=== PATIENT | male | born 1975 | race Caucasian/White ===

== ENCOUNTER 2024-11-28 04:14 | Emergency (ER) | payer OTHER, SELFPAY ==
[2024-11-28 04:16] VITALS: BP 156/86; PULSE 70; RESP 18; TEMP 36.9; O2SAT 98; BMI 34.7
[2024-11-28] MEDS: Lidocaine 2% (20 ml mdv) 20 ML Vial INFILT (04:56)
--- NOTE | 2024-11-28 05:20 | RAD_ITS ---
PROCEDURE: HAND MIN 3 VIEWS 11/28/2024 REASON FOR EXAM: PAIN TECHNIQUE: HAND MIN 3 VIEWS COMPARISON: No FINDINGS: Old 4th metacarpal mid shaft fracture. Old 3rd metacarpal base fracture. Old 5th metacarpal mid shaft fracture. No acute fracture or dislocation. No soft tissue injury. RAD/Hand Min 3 Views IMPRESSION: No acute hand injury. Reading Location: [facility]
--- OUTSIDE RECORDS SUMMARY | 2024-11-28 05:26 | XMS RPT_ITS | CCD ---
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 Name Role Phone Turner Salvador Attending Unavailable Unavailable Primary Care Provider ROMERO Lyles Attending Unavailable Medications Completed/Discontinued Medications Medication Drug Class(es) Dates Sig (Normalized) Sig (Original) 1 ml ketorolac tromethamine 30 mg/ml cartridge (2 sources) Nonsteroidal Anti-inflammatory Drug, Cyclooxygenase Inhibitor Start: 05-30-2024 End: 05-30-2024 inject 30 mg by intramuscular injection once 30 mg, IntraMUSCular, Once, On Tue05/30/24 at 2014, For 1 dose Problems Problem Classification Problem Date Documented Da te Episodic/Chronic Viral infection (4 sources) Viral disease; Translations: [Viral infection, unspecified] Onset: 05-30-2024 05-30-2024 Episodic Results Test Name Value Interpretation Reference Range Facil ity ED Provider Noteon ED Provider Note Emergency Department Encounter [facility] ED Patient: Acosta Granger : 1975 Date of Evaluation: 05/30/2024 ED Provider: Romero Doyle DO Chief Complaint Chief Complaint Patient presents with Fever Pt has been taking nyquil and dayquil. States that fever broke earlier today. Sore Throat Cough Covid test negative. ROSE MARY Granger is a 49 y.o. male who presents to the emergency department complaining of cough, fevers, chills. Patient reports that he has sore throat and other infectious symptoms. Many family members have had RSV. States he is here because his made him come to the department. Additional history obtained from : n/a Barriers to obtaining history from patient: n/a ROS: Review of Systems completed as follows: (Bold = positive, Not bold = negative) GENERAL: fevers, chills, malaise ENT: runny nose, congestion, sore throat, ear pain NEURO: weakness, numbness of tingling, headache CARDIOVASCULAR: chest pain, syncope PULMONARY: shortness of breath, cough, wheezing GASTROINTESTINAL: nausea, vomiting, abdominal pain, diarrhea, constipation, MUSCULOSKELETAL: pain GENITAL/URINARY: dysuria, hematuria, increased urinary frequency, hesitancy, flank pain SKIN: rash, lesions, wound Past History No past medical history on file. No past surgical history on file. Social History Socioeconomic History Marital status: Single I have reviewed the history above as provided by nursing notes. Medications/Allergies There are no discharge medications for this patient. No Known Allergies I have reviewed the history above as provided by nursing notes. Physical Exam ED Triage Vitals [05/30/241936] Temp Heart Rate Resp BP 36.8 ?C (98.2 ?F) 83 16 132/70 SpO2 Temp Source Heart Rate Source Patient Position 99 % Oral Monitor -- BP Location FiO2 (%) Right arm -- GENERAL: The patient appears nourished and normally developed. Vital signs as documented. EYES: PERRL. No scleral icterus or orbital trauma noted. HEENT: Mucous membranes moist. Nares patent without copious rhinorrhea. LUNGS: Lungs are clear to auscultation, without any respiratory distress. CARDIAC: Rhythm is regular. No murmur appreciated. 2+ radial pulses bilaterally. ABDOMEN: Nontender, soft, with no obvious masses, and no peritoneal signs. EXTREMITIES: Non edematous, with no obvious deformities. SKIN: Good color, with no significant rashes. No pallor. NEURO: No obvious neurological deficits, normal sensation and strength bilaterally. Diagnostics Labs: No results found for this or any previous visit. Radiographs: No orders to display EMERGENCY DEPARTMENT COURSE and DIFFERENTIAL DIAGNOSIS/MDM: Vitals: Vitals: 05/30/241936 BP: 132/70 BP Location: Right arm Pulse: 83 Resp: 16 Temp: 36.8 ?C (98.2 ?F) TempSrc: Oral SpO2: 99% Weight: 95.3 kg (210 lb) Height: 1.651 m (5' 5) The patient presented with a chief complaint of infectious symptoms. Vital signs reviewed. On exam, patient appears comfortable. He does not show acute distress. He does report symptoms that raise my suspicion for acute coronary syndrome, possible pneumonia however I suspect the most likely diagnosis is a viral illness as his entire family has for RSV. I discussed further evaluation with EKG, chest x-ray and blood work but ultimately patient declined stating he did not feel that he had a heart attack or other concerning complication from his suspected viral illness. He was agreeable to treatment with NSAIDs, Tylenol, follow-up to his primary care doctor. He was given note for work. He was given a dose of Toradol in the emergency department. He will be discharged to follow-up with 1 the primary care doctors provided to him as he does not have a primary care doctor. Diagnoses as of 05/31/24 0346 Viral illness ED Medications managed: Medications ketorolac (Toradol) injection 30 mg (30 mg IntraMUSCular Given 05/30/242026) Patients symptoms are consistent with sepsis, severe sepsis or septic shock (if yes, use .sepsiscoremeasure) - no Final Impression 1. Viral illness DISPOSITION discharge Comment: Please note this report has been produced using speech recognition software and may contain errors related to that system including errors in grammar, punctuation, and spelling, as well as words and phrases that may be inappropriate. If there are any questions or concerns please feel free to contact the dictating provider for clarification. Romero Doyle, DO [employer] Romero Doyle DO 05/31/24 0348 Normal [facility] [employer] [facility] Vital Signs Date Time Vital Sign Value Performing Clinician Erwin raman 05-30-2024 19:37-0500 Body height 165.1 cm Romero Mixheim DO Work Phone: [employer] 05-30-2024 19:37-0500 Body mass index (BMI) [Ratio] 34.95 kg/m2 Romero Nesheim DO Work Phone: [employer] 05-30-2024 19:37-0500 Body temperature 98.2 [degF] Romero Nesheim DO Work Phone: [employer] 05-30-2024 19:37-0500 Body weight 95.25 kg Romero Nesheim DO Work Phone: [employer] 05-30-2024 19:37-0500 Diastolic blood pressure 70 mm[Hg] Romero Nesheim DO Work Phone: [employer] 05-30-2024 19:37-0500 Heart rate 83 /min Romero Nesheim DO Work Phone: [facility] [employer] 05-30-2024 19:37-0500 Respiratory rate 16 /min Romero Nesheim DO Work Phone: [facility] 05-30-2024 19:37-0500 SaO2% (BldA) [Mass fraction] 99 % Romero Nesheim DO Work Phone: [facility] [employer] 05-30-2024 19:37-0500 Systolic blood pressure 132 mm[Hg] Romero Mixheim D O Work Phone: [facility] Encounters Encounter Date Encounter Type Care Provider Facility Start: 05-30-2024 End: 05-30-2024 Emergency department patient visit Romero Doyle DO Work Phone: [facility] ED Comment on above: Viral illness (Prima ry Dx) Start: 08-29-2023 ambulatory Turner Gallardo ity:BMS Plan of Treatment Date Care Activity Detail Author Start: 01-16-2052 RSV Immunization for Adults (1 - 1-dose 75+ series) RSV Immunization for Adults (1 - 1-dose 75+ series) [facility] Start: 2027 Zoster Vaccines (1 of 2) Zoster Vacc lenka (1 of 2) [facility] Start: 12-25-2023 COVID-19 Vaccine ( season) COVID-19 Vaccine ( season) [facility] Start: 12-25-2023 Influenza vaccination Influenza Vacc ine (#1) [facility] Start: 01-16-1996 DTaP/Tdap/Td Vaccine s (1 - Tdap) DTaP/Tdap/Td Vaccines (1 - Tdap) [facility] Start: 01-16-1996 Hepatitis B Vaccines (1 of 3 - 19+ 3-dose series) Hepatitis B Vaccines (1 of 3 - 19+ 3-dose series) [facility] Start: 1995 Diabetes mellitus screening Diabetes Screening [facility] Start: 1995 Hepatitis C screening Hepatitis C Sc reening [facility] Start: 1989 Depression Screening Depression Scre ening [facility] Start: 1978 MMR Vaccines (1 of 1 - Standard series) MMR Vaccines (1 of 1 - Standard series) [facility] Start: 1977 HIV screening HIV Screening Laura ellison Start: 1977 Lipid panel Lipid Panel [facility] Start: 1975 Screening for malign ant neoplasm of colon [facility] Payers Date Payer Category Payer Commercial Managed C are - HMO [email or web address] JOSIANE [id number] 2024 Unknown [id number] 2023 Self-pay 2023 Unknown [id number] Unknown [id number] Social History Date Type Detail Facility Tobacco smoking stat [facility] Tobacco smoking consumption unknown [facility] Start: 1975 Sex assigned at Not on file [facility] Start: 05-30-2024 Sex Male (finding) [facility] Jerome ellison Gender identity Not on file [facility] Hospital Discharge instructions 05-30-2024 Discharge InstructionsAttachments Note Date & Type Note Facility 05-30-2024 Hospital Discharg e instructions Romero Doyle, - 05/30/2024 8:19 PM EST As we discussed I am highly suspicious that you have become ill with RSV like your other family members. Please take Tylenol and Motrin as needed for pain and fever. Drink plenty of fluids. Get plenty of rest. Follow-up with the primary care doctor in 1 week. I have attached the contact information for the [facility] residency. I also will give you a pamphlet of other similar physicians. If you develop severe symptoms as we discussed, please return to the emergency department for repeat evaluation. The following attachments cannot be sent through Care Everywhere.Viral Syndrome Discharge Instructions (Nigerian)documented in this encounter [facility] Emergency department Note 05-30-2024 Romero Doyle DO - 05/30/2024 7:06 PM EST Note Date & Type Note Facility 05-30-2024 Emergency departm ent Note Emergency Department Encounter [facility] ED Patient: Acosta Granger : 1975 Date of Evaluation: 05/30/2024 ED Provider: Romero Doyle DO Chief Complaint Chief Complaint Patient presents with Fever Pt has been taking nyquil and dayquil. States that fever broke earlier today. Sore Throat Cough Covid test negative. ROSE MARY Granger is a 49 y.o. male who presents to the emergency department complaining of cough, fevers, chills. Patient reports that he has sore throat and other infectious symptoms. Many family members have had RSV. States he is here because his made him come to the department. Additional history obtained from : n/a Barriers to obtaining history from patient: n/a ROS: Review of Systems completed as follows: (Bold = positive, Not bold = negative) GENERAL: fevers, chills, malaise ENT: runny nose, congestion, sore throat, ear pain NEURO: weakness, numbness of tingling, headache CARDIOVASCULAR: chest pain, syncope PULMONARY: shortness of breath, cough, wheezing GASTROINTESTINAL: nausea, vomiting, abdominal pain, diarrhea, constipation, MUSCULOSKELETAL: pain GENITAL/URINARY: dysuria, hematuria, increased urinary frequency, hesitancy, flank pain SKIN: rash, lesions, wound Past History No past medical history on file. No past surgical history on file. Social History Socioeconomic History Marital status: Single I have reviewed the history above as provided by nursing notes. Medications/Allergies There are no discharge medications for this patient. No Known Allergies I have reviewed the history above as provided by nursing notes. Physical Exam ED Triage Vitals [05/30/241936] Temp Heart Rate Resp BP 36.8 C (98.2 F) 83 16 132/70 SpO2 Temp Source Heart Rate Source Patient Position 99 % Oral Monitor -- BP Location FiO2 (%) Right arm -- GENERAL: The patient appears nourished and normally developed. Vital signs as documented. EYES: PERRL. No scleral icterus or orbital trauma noted. HEENT: Mucous membranes moist. Nares patent without copious rhinorrhea. LUNGS: Lungs are clear to auscultation, without any respiratory distress. CARDIAC: Rhythm is regular. No murmur appreciated. 2+ radial pulses bilaterally. ABDOMEN: Nontender, soft, with no obvious masses, and no peritoneal signs. EXTREMITIES: Non edematous, with no obvious deformities. SKIN: Good color, with no significant rashes. No pallor. NEURO: No obvious neurological deficits, normal sensation and strength bilaterally. Diagnostics Labs: No results found for this or any previous visit. Radiographs: No orders to display EMERGENCY DEPARTMENT COURSE and DIFFERENTIAL DIAGNOSIS/MDM: Vitals: Vitals: 05/30/241936 BP: 132/70 BP Location: Right arm Pulse: 83 Resp: 16 Temp: 36.8 C (98.2 F) TempSrc: Oral SpO2: 99% Weight: 95.3 kg (210 lb) Height: 1.651 m (5' 5) The patient presented with a chief complaint of infectious symptoms. Vital signs reviewed. On exam, patient appears comfortable. He does not show acute distress. He does report symptoms that raise my suspicion for acute coronary syndrome, possible pneumonia however I suspect the most likely diagnosis is a viral illness as his entire family has for RSV. I discussed further evaluation with EKG, chest x-ray and blood work but ultimately patient declined stating he did not feel that he had a heart attack or other concerning complication from his suspected viral illness. He was agreeable to treatment with NSAIDs, Tylenol, follow-up to his primary care doctor. He was given note for work. He was given a dose of Toradol in the emergency department. He will be discharged to follow-up with 1 the primary care doctors provided to him as he does not have a primary care doctor. Diagnoses as of 05/31/24 0346 Viral illness ED Medications managed: Medications ketorolac (Toradol) injection 30 mg (30 mg IntraMUSCular Given 05/30/242026) Patients symptoms are consistent with sepsis, severe sepsis or septic shock (if yes, use .sepsiscoremeasure) - no Final Impression 1. Viral illness DISPOSITION discharge Comment: Please note this report has been produced using speech recognition software and may contain errors related to that system including errors in grammar, punctuation, and spelling, as well as words and phrases that may be inappropriate. If there are any questions or concerns please feel free to contact the dictating provider for clarification. Romero Doyle DO [employer] Romero Doyle DO 05/31/24 0348 documented in this encounter [facility] Physician Emergency department Note 05-30-2024 Romero Doyle DO - 05/30/2024 7:06 PM EST Note Date & Type Note Facility 05-30-2024 Physician Emergen cy department Note Emergency Department Encounter [facility] ED Patient: Acosta Granger : 1975 Date of Evaluation: 05/30/2024 ED Provider: Romero Doyle DO Chief Complaint Chief Complaint Patient presents with Fever Pt has been taking nyquil and dayquil. States that fever broke earlier today. Sore Throat Cough Covid test negative. ROSE MARY Granger is a 49 y.o. male who presents to the emergency department complaining of cough, fevers, chills. Patient reports that he has sore throat and other infectious symptoms. Many family members have had RSV. States he is here because his made him come to the department. Additional history obtained from : n/a Barriers to obtaining history from patient: n/a ROS: Review of Systems completed as follows: (Bold = positive, Not bold = negative) GENERAL: fevers, chills, malaise ENT: runny nose, congestion, sore throat, ear pain NEURO: weakness, numbness of tingling, headache CARDIOVASCULAR: chest pain, syncope PULMONARY: shortness of breath, cough, wheezing GASTROINTESTINAL: nausea, vomiting, abdominal pain, diarrhea, constipation, MUSCULOSKELETAL: pain GENITAL/URINARY: dysuria, hematuria, increased urinary frequency, hesitancy, flank pain SKIN: rash, lesions, wound Past History No past medical history on file. No past surgical history on file. Social History Socioeconomic History Marital status: Single I have reviewed the history above as provided by nursing notes. Medications/Allergies There are no discharge medications for this patient. No Known Allergies I have reviewed the history above as provided by nursing notes. Physical Exam ED Triage Vitals [05/30/241936] Temp Heart Rate Resp BP 36.8 C (98.2 F) 83 16 132/70 SpO2 Temp Source Heart Rate Source Patient Position 99 % Oral Monitor -- BP Location FiO2 (%) Right arm -- GENERAL: The patient appears nourished and normally developed. Vital signs as documented. EYES: PERRL. No scleral icterus or orbital trauma noted. HEENT: Mucous membranes moist. Nares patent without copious rhinorrhea. LUNGS: Lungs are clear to auscultation, without any respiratory distress. CARDIAC: Rhythm is regular. No murmur appreciated. 2+ radial pulses bilaterally. ABDOMEN: Nontender, soft, with no obvious masses, and no peritoneal signs. EXTREMITIES: Non edematous, with no obvious deformities. SKIN: Good color, with no significant rashes. No pallor. NEURO: No obvious neurological deficits, normal sensation and strength bilaterally. Diagnostics Labs: No results found for this or any previous visit. Radiographs: No orders to display EMERGENCY DEPARTMENT COURSE and DIFFERENTIAL DIAGNOSIS/MDM: Vitals: Vitals: 05/30/241936 BP: 132/70 BP Location: Right arm Pulse: 83 Resp: 16 Temp: 36.8 C (98.2 F) TempSrc: Oral SpO2: 99% Weight: 95.3 kg (210 lb) Height: 1.651 m (5' 5) The patient presented with a chief complaint of infectious symptoms. Vital signs reviewed. On exam, patient appears comfortable. He does not show acute distress. He does report symptoms that raise my suspicion for acute coronary syndrome, possible pneumonia however I suspect the most likely diagnosis is a viral illness as his entire family has for RSV. I discussed further evaluation with EKG, chest x-ray and blood work but ultimately patient declined stating he did not feel that he had a heart attack or other concerning complication from his suspected viral illness. He was agreeable to treatment with NSAIDs, Tylenol, follow-up to his primary care doctor. He was given note for work. He was given a dose of Toradol in the emergency department. He will be discharged to follow-up with 1 the primary care doctors provided to him as he does not have a primary care doctor. Diagnoses as of 05/31/24 0346 Viral illness ED Medications managed: Medications ketorolac (Toradol) injection 30 mg (30 mg IntraMUSCular Given 05/30/242026) Patients symptoms are consistent with sepsis, severe sepsis or septic shock (if yes, use .sepsiscoremeasure) - no Final Impression 1. Viral illness DISPOSITION discharge Comment: Please note this report has been produced using speech recognition software and may contain errors related to that system including errors in grammar, punctuation, and spelling, as well as words and phrases that may be inappropriate. If there are any questions or concerns please feel free to contact the dictating provider for clarification. Romero Doyle DO [employer] Romero Doyle DO 05/31/24 0348 [facility] Evaluation note Note Date & Type Note Facility Evaluation note Diagnosis Viral illness- Primary Unspecified viral infection, in conditions classified elsewhere and of unspecified site documented in this encounter [facility] Summary Purpose Family History No Family History Records FoundNo Family History Records Found Advance Directives No Advanced Directives Records FoundNo Advanced Directives Records Found Additional Source Comments (unrecognized sect ion and content) No Status Records FoundNo Status Records Found INFORMATION SOURCE (unrecogn ized section and content) DATE CREATED AUTHOR 08/29/2023 [facility] DATE CREATED AUTHOR AUTHOR'S ORGANIZ ATION 06/02/2024 [facility] Reason for Visit (unrecogniz ed section and content) Reason Comments Fever Pt has been taking n yquil and dayquil. States that fever broke earlier today. Sore Throat Cough Covid test negative. Scheduled Active and Recently Administ ered Medications (unrecognized section and content) Medication Order 05/28/2024 05/29/2024 05/30/2024 ketorolac (Toradol) injection 30 mg (COMPLETED) 30 mg, IntraMUSCular, Once, On Tue05/30/24 at 2014, For 1 dose 2026 (Given - Provid er: Citlaly Tolentino RN) FOR RECORDS PERTAINING TO PATIENTS WHO ARE OR HAVE BEEN ENROLLED IN A CHEMICAL DEPENDENCY/SUBSTANCEABUSE PROGRAM, SOME INFORMATION MAY BE OMITTED. This clinical summary was aggregated from multiple sources. Caution should be exercised in using it in the provision of clinical care. This summary normalizes information from multiple sources, and as a consequence, information in this document may materially change the coding, format and clinical context of patient data. In addition, data may be omitted in some cases. CLINICAL DECISIONS SHOULD BE BASED ON THE PRIMARY CLINICAL RECORDS. [facility]. provides no warranty or guarantee of the accuracy or completeness of information in this document.
--- NOTE | 2024-11-28 05:46 | EX.ED.DYSGE1 ---
HPI History of Present Illness Chief Complaint: Laceration Informant: patient Narrative Narrative: Patient is a 49-year-old male who reports no significant past medical history. He states he is right-hand dominant. He reports shortly prior to arrival in the ER he was at work when he was changing a machine and he states that he was told how to do it in an improper manner and as he was performing the function the hydraulic section of the press engaged and smashed his right hand in between 2 pieces of steel. He states he sustained a laceration to his right middle finger as well as pain and swelling at the site. He denies any other injury. He states this been over 5 years since his last tetanus shot. With concern for fracture and with potential need for closure of the laceration he was sent to the ER for evaluation PFSH PFS no medical history Home Medications ?Medication ?Instructions ?Recorded ?Last Taken ?Type cephalexin 500 mg capsule 500 mg PO TID 7 days #21 caps 11/28/24 Unknown Rx Allergy/AdvReac Type Severity Reaction Status Date / Time No Known Allergies Allergy Verified 11/28/24 04:15 Surgical History (Updated 11/28/24 @ 04:18 by Molly Etienne) Hx of vasectomy Social History Smoking Status: Former smoker ROS ROS ED Constitutional Constitutional ED: Denies chills or fever(s) Eyes Eyes: Denies change in vision ENT ENT ED: Denies sore throat Cardiovascular Cardiovascular: Denies chest pain Respiratory/Chest Respiratory/Chest: Denies cough or dyspnea Gastrointestinal Gastrointestinal: Denies abdominal pain, diarrhea, nausea or vomiting Musculoskeletal Musculoskeletal: Reports other Details: Positive right middle finger pain Integumentary Reports other Details: Positive laceration right middle finger ; Denies rash Neurologic Neurologic: Denies headache(s), paresthesias or weakness Hematologic/Lymphatic Hematologic/Lymphatic: Denies easy bleeding or easy bruising EXAM Physical Exam Const Vital Signs: 11/28/24 04:16 11/28/24 05:54 Temperature 98.5 F 98.5 F Temperature Source Oral Pulse Rate 70 66 Respiratory Rate 18 18 Blood Pressure 156/86 H 165/107 H Blood Pressure Mean 109 126 Pulse Ox 98 98 Oxygen Delivery Method Room Air Positive well nourished, well developed and obese General Appearance ED: well developed Nutritional Appearance: obese HEENT HEENT Narrative: Normocephalic atraumatic Eyes PERRL and EOMs intact bilaterally General Eye ED: Negative for scleral icterus Neck supple Resp normal respiratory effort and clear to auscultation bilaterally Cardio regular rate and regular rhythm Extremity Extremity Narrative: Right upper extremity is neurovascularly intact; AIN/PIN are intact and normal. Patient has soft tissue swelling to the distal aspect of his right middle finger over top of the distal phalange. There is no nailbed involvement or subungual hematoma. Patient does have a jagged subcutaneous layer deep laceration to the finger pad of the right middle finger that is 2 cm in length with a minimal ooze of blood and no retained foreign body No obvious bony deformity or joint effusion Remainder of the exam is normal Neuro oriented x3, CN's II-XII intact bilaterally and no sensory deficits noted Sensorium / Orientation: alert Motor Exam: strength 5/5 throughout Psych mental status grossly normal Skin Skin Narrative: Laceration to the right middle finger as documented above MDM MDM MDM Narrative Medical decision making narrative: Patient arrived to the ER slightly hypertensive but overall stable vitals. He sustained a mechanical injury/crush injury to his right hand mainly his right middle finger. With concern for a tuft fracture or retained foreign and x-ray was obtained. At revealed no acute findings. The patient had his tetanus updated as he states it has been over 5 years. The wound was then closed as documented below. Without signs of open fracture subungual hematoma ligamentous or tendon injury or findings of compartment syndrome there is no need for further intervention and is otherwise safe for discharge Patient had a dorsal aspect of his right middle finger cleaned with chlorhexidine. The area was then anesthetized using 1.5 mL of 2% lidocaine without epinephrine and local fashion. The wound was copiously irrigated with normal saline. Then six 4-0 Ethilon sutures were placed in simple interrupted fashion to bring the wound edges together well with good approximation. Patient tolerated procedure well without complication History & Record Review Discussion w/independent historian: Patient Radiography Diagnostic Testing: Clinical Impression(s) from Imaging Studies Hand X-Ray 11/28/24 05:20 IMPRESSION: No acute hand injury. Reading Location: [place] [id number] Right hand x-ray as interpreted by the emergency medicine physician reveals no acute fracture or retained foreign body Discharge Plan Triage Chief Complaint: Laceration ED Provider: Jameson Izaguirre Dx/Rx/DC Orders Clinical Impression: Crushing injury of right middle finger, initial encounter, Laceration of right middle finger Instructions: ED Crush Injury, Hand, ED Laceration, Hand: All Closures Prescriptions: New cephalexin 500 mg capsule 500 mg PO TID 7 Days Qty: 21 0RF Primary Care Provider: Care Physician,No Primary Referrals: [facility] [Provider Group] Care Physician,No Primary [Primary Care Provider] - Activity Restrictions/Additional Instructions: Your x-ray did not reveal any signs of fracture or foreign body. Please take the antibiotic as directed to prevent a secondary infection as the laceration was moderately contaminated. Follow[facility]up with the [facility] or return to the ER in 7 to 10 days for suture removal. If you have any further concerns please return to the ER for repeat evaluation Print Language: [place] Disposition Disposition: Home, Self Care Discharge Date/Time: 11/28/24 05:55
[2024-11-28 05:54] VITALS: BP 165/107; PULSE 66; RESP 18; TEMP 36.9; O2SAT 98
== END 2024-11-28 05:55 | disposition home or self-care (01) ==
PROVIDERS: Emergency Provider Emergency Medicine; Visit Provider Emergency Medicine
DX: S61.212A Laceration without foreign body of right middle finger without damage to nail, initial encounter (principal); Z87.891 Personal history of nicotine dependence; E66.9 Obesity, unspecified; Y99.0 Civilian activity done for income or pay; W23.0XXA Caught, crushed, jammed, or pinched between moving objects, initial encounter
CPT/HCPCS: 12001; 73130; 90715; 99283